=== PATIENT | female | born 1990 | race Caucasian/White ===

== ENCOUNTER 2024-12-14 17:03 | Emergency (ER) | payer MEDICAID ==
[~2024-12-14] VITALS: Ht 167.6 cm; Wt 82.7 kg
[2024-12-14 17:05] VITALS: TEMP 98.1
[2024-12-14 17:33] LABS: PLATELET COUNT (AUTO) 351 K/uL (150-450); RED BLOOD CELL COUNT(AUTO) 4.36 MIL/uL (4.00-5.20); RED CELL DISTRIBUTION WIDTH 15.4 % (11.5-14.5); WHITE BLOOD COUNT (AUTO) 9.4 K/uL (4.5-11.0)
[2024-12-14 17:39] LABS: CALCIUM, TOTAL 9.1 mg/dL (8.8-10.5); CREATININE 0.57 mg/dL (0.60-1.30); GLOMERULAR FILTR. RATE CALC > 60 mL/min (>60); GLUCOSE,RANDOM 90 mg/dL (70-110); SODIUM SERUM 139 mmol/L (136-145); UREA NITROGEN, BLOOD 8 mg/dL (7-18)
[2024-12-14 17:49] LABS: TROPONIN I-HIGH SENSITIVITY 4 ng/L (<51)
[2024-12-14 18:00] VITALS: BP 104/73; PULSE 71; RESP 16; O2SAT 100
== END 2024-12-14 18:12 | disposition home or self-care (01) ==
LOC: EMS 17:04
DX: K29.70 Gastritis, unspecified, without bleeding (principal); Z98.890 Other specified postprocedural states
CPT/HCPCS: 71045; 80048; 84484; 85025; 93005; 99285; 36415-L1; 36415-TC